=== PATIENT | female | born 1935 | race Caucasian/White ===

== ENCOUNTER 2016-08-14 08:03 | Outpatient (CLI) ==
--- NOTE | 2016-08-14 09:16 | CT ---
EXAM: CT Abdomen with contrast. CT Pelvis with contrast. HISTORY: Lower abdominal pain, bloating. COMPARISON: None available. TECHNIQUE: Multiple axial images of the abdomen and pelvis were obtained following intravenous admi nistration of 100 mL of Visipaque 320, low osmolar. Images were reformatted in the coronal plane. FINDINGS: Lipomatous hypertrophy of the interatrial septum is present although the heart is incompl etely imaged. Calcified granulomatous changes seen in the lung bases. Degenerative changes seen throughout the spine. Old moderate anterior wedging deformity of T12 note d. 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 Gallbladder is absent. A 0.8 cm low density hepatic lesion on axial image 22 is too small to charac terize but statistically most likely a cyst or hemangioma. The pancreas, spleen, adrenal glands, an d kidneys are without acute abnormality. Large para-esophageal hiatal hernia containing most of the stomach. There is no evidence for bowel obstruction or acute inflammation. Mild colonic diverticulosis noted. The appendix is normal. Keila iam is absent. Urinary bladder is unremarkable. No free fluid, free air or lymphadenopathy identif ied. Atherosclerotic calcifications present with areas of fusiform dilatation of the infrarenal abd ominal aorta measuring up to 2.4 cm diameter. IMPRESSION: 1. No acute inflammatory process in the abdomen or pelvis. 2. Large para-esophageal hiatal hernia. 3. Colonic diverticulosis. 4. Atherosclerosis. 5. Lipomatous hypertrophy of the interatrial septum.
== END 2016-08-14 08:04 | disposition home or self-care (01) ==
LOC: RAD 08:03
PROVIDERS: ATTEND Family Medicine
DX: R10.9 Unspecified abdominal pain (principal)

== ENCOUNTER 2016-10-14 17:29 | Outpatient (CLI) | payer OTHER | END 2016-10-14 17:30 | disposition short-term general hospital (02) | LOC: AMBL 17:29 | PROVIDERS: ATTEND Emergency Medicine | DX: E11.649 Type 2 diabetes mellitus with hypoglycemia without coma (principal); I95.9 Hypotension, unspecified ==

== ENCOUNTER 2017-04-22 16:25 | Outpatient (CLI) | END 2017-04-22 16:26 | disposition home or self-care (01) | LOC: NONPT 16:25 | PROVIDERS: ATTEND Family Medicine | DX: R68.89 Other general symptoms and signs (principal) | CPT/HCPCS: 87502 ==

== ENCOUNTER 2017-04-23 09:46 | Outpatient (CLI) | END 2017-04-23 09:47 | disposition home or self-care (01) | LOC: NONPT 09:46 | PROVIDERS: ATTEND Family Medicine | DX: R30.0 Dysuria (principal); R35.0 Frequency of micturition | CPT/HCPCS: 81001; 87086 ==

== ENCOUNTER 2017-04-28 17:22 | Inpatient (IN) ==
--- NOTE | 2017-04-28 18:25 | ED.PDOC ---
General Stated Complaint: ABNORMAL LABS Time Seen by Physician: 17:30 (OUT PT SERUM K WAS HIGH) Mode of Arrival: Wheelchair Information Source: Patient Exam Limitations: No limitations Nursing and Triage Documentation Reviewed and Agree: Yes Reviewed sepsis parameters & appropriate labs ordered?: Yes System Inflammatory Response Syndrome: Not Applicable System Inflammatory Response Syndrome: Not Applicable <CHRIS HOLLIDAY - Last Filed: 04/28/17 18:23> <ROSEMARY RUIZ - Last Filed: 04/28/17 19:16> ED Provider: Dr. ROSEMARY MATUTE-ER Chief Complaint: Abnormal Labs Primary Care Provider: ROSEMARY MATUTE Sepsis Protocol: For patient's 13 years and over: Temp is 96.8 and below OR 101 and greater Pulse >90 BPM Resp >20/minute Acutely Altered Mental Status Are patient's symptoms suggestive of a new infection, such as: -Pneumonia -Skin, Soft Tissue -Endocarditis -UTI -Bone, Joint Infection -Implantable Device -Acute Abdominal Infection -Wound Infection -Meningitis -Blood Stream Catheter Infection -Unknown Miscellaneous Complaint Exam - Complex/Multi-System Complaint/Exam Onset/Duration: TODAY Symptoms Are: Still present Episodes Lasting: Hours Initial Severity: Moderate Current Severity: Mild Associated Signs and Symptoms: Denies: Decreased responsiveness, Confusion, Agitation, Dizziness, Weakness, Syncope, Headache, Short of air, Cough, Wheezing , Hemoptysis, Chest pain, Palpitations, Edema, Nausea, Vomiting, Diarrhea, Abdominal pain, Back pain, Dysuria, Hematemesis, Melena, Decreased oral intake, Fever, Diaphoresis, Immunocompromised, Anticoagulation Therapy, Recent medication changes, Indwelling medical director, Prior MRSA, Prior VRE, Recent trauma, Remote trauma Recent Echo/LV Function: No Respiratory Distress: None JVD Present: No Tachypnea Present: No Stridor Present: No Abdominal Findings: Present: Normal findings Meningeal Signs Positive: No Focal Weakness: Present: None Focal Sensory Loss: Present: None Gait: Normal Gag Reflex Present: Yes Babinski Sign: Negative Right, Negative Left Joint Swelling Present: No In-Dwelling Device Present: No Differential Diagnosis: Metabolic Abnormality Quality Indicators for Cardiac Chest Pain: EKG in 10min. Quality Indicators for AMI: EKG in 10min. Quality Indicator For Non-Traumatic Chest Pain/Syncope: EKG Performed <CHRIS HOLLIDAY - Last Filed: 04/28/17 18:23> Review of Systems - Review Of Systems Constitutional: Reports: No symptoms Eyes: Reports: No symptoms Ears, Nose, Mouth, Throat: Reports: No symptoms Respiratory: Reports: No symptoms Cardiac: Reports: No symptoms GI: Reports: No symptoms : Reports: No symptoms Musculoskeletal: Reports: No symptoms Skin: Reports: No symptoms Neurological: Reports: No symptoms Endocrine: Reports: No symptoms Hematologic/Lymphatic: Reports: No symptoms All Other Systems: Reviewed and Negative <CHRIS HOLLIDAY - Last Filed: 04/28/17 18:23> Past Medical History - Past Medical History Previously Healthy: Yes Endocrine: Reports: DM 2 Cardiovascular: Reports: Hypertension Respiratory: Reports: COPD Hematological: Reports: None Gastrointestinal: Reports: GERD Genitourinary: Reports: None Neuro/Psych: Reports: Schizophrenia Musculoskeletal: Reports: None Cancer: Reports: None Last Menstrual Period: n/a - Surgical History General Surgical History: Reports: None - Family History Family History: Reports: None - Social History Smoking Status: Former smoker Hx Substance Use: No Alcohol Screening: None <CHRIS HOLLIDAY - Last Filed: 04/28/17 18:23> Physical Exam - Physical Exam Appearance: Well-appearing, No pain distress, Well-nourished Eyes: WILIAM, EOMI, Conjunctiva clear ENT: Ears normal, Nose normal, Oropharynx normal Respiratory: Airway patent, Breath sounds clear, Breath sounds equal, Respirations nonlabored Cardiovascular: RRR, Pulses normal, No rub, No murmur GI/: Soft, Nontender, No masses, Bowel sounds normal, No Organomegaly Musculoskeletal: Normal strength, ROM intact, No edema, No calf tenderness Skin: Warm, Dry, Normal color Neurological: Sensation intact, Motor intact, Reflexes intact, Cranial nerves intact, Alert, Oriented Psychiatric: Affect appropriate, Mood appropriate <CHRIS HOLLIDAY - Last Filed: 04/28/17 18:23> Critical Care Note - Critical Care Note Total Time (mins): 0 <CHRIS HOLLIDAY - Last Filed: 04/28/17 18:23> Course - Course Hematology/Chemistry: 04/28/17 18:34 04/28/17 18:34 <ROSEMARY RUIZ - Last Filed: 04/28/17 19:16> - Course Orders, Labs, Meds: Lab Review 04/28/17 04/28/17 04/28/17 18:34 18:34 18:34 WBC 5.18 RBC 4.50 Hgb 12.5 Hct 36.5 L MCV 81.1 MCH 27.8 MCHC 34.2 RDW Coeff of Bianka 13.7 Plt Count 241 Immature Gran % (Auto) 0.2 Neut % (Auto) 55.8 Lymph % (Auto) 31.3 [place] % (Auto) 10.6 H Eos % (Auto) 2.1 Baso % (Auto) 0.0 Immature Gran # (Auto) 0.0 Neut # (Auto) 2.9 Lymph # (Auto) 1.6 [place] # (Auto) 0.6 Eos # (Auto) 0.1 Baso # (Auto) 0.0 Sodium 131 L Potassium 6.4 H* Chloride 102 Carbon Dioxide 21 L Anion Gap 14.4 BUN 47 H Creatinine 1.60 H Estimated GFR (MDRD) 31.00 BUN/Creatinine Ratio 29.37 Glucose 104 Calcium 9.8 Total Bilirubin 0.3 AST 13 L ALT 19 Alkaline Phosphatase 83 Total Creatine Kinase Troponin I 0.0130 Total Protein 7.8 Albumin 3.8 Globulin 4.0 Albumin/Globulin Ratio 0.95 04/28/17 18:34 WBC RBC Hgb Hct MCV MCH MCHC RDW Coeff of Bianka Plt Count Immature Gran % (Auto) Neut % (Auto) Lymph % (Auto) [place] % (Auto) Eos % (Auto) Baso % (Auto) Immature Gran # (Auto) Neut # (Auto) Lymph # (Auto) [place] # (Auto) Eos # (Auto) Baso # (Auto) Sodium Potassium Chloride Carbon Dioxide Anion Gap BUN Creatinine Estimated GFR (MDRD) BUN/Creatinine Ratio Glucose Calcium Total Bilirubin AST ALT Alkaline Phosphatase Total Creatine Kinase 48 Troponin I Total Protein Albumin Globulin Albumin/Globulin Ratio Orders Category Date Time Status EKG-(ED ONLY) Stat CARDIO 04/28/17 18:05 Completed BLOOD CULTURE (ED ONLY) Stat LAB 04/28/17 18:34 Received CBC W/ AUTO DIFF Stat LAB 04/28/17 18:34 Completed COMPREHENSIVE METABOLIC PANEL Stat LAB 04/28/17 18:34 Completed CREATINE KINASE Stat LAB 04/28/17 18:34 Completed PROCALCITONIN Stat LAB 04/28/17 18:34 Received TROPONIN I Stat LAB 04/28/17 18:34 Completed CHEST, 1V AP ONLY Stat RADS 04/28/17 18:[address] ABDOMEN/PELVIS WO CONTRAST Stat RADS 04/28/17 18:05 Ordered Vital Signs: Temp Pulse Resp BP Pulse Ox 04/28/17 17:22 97.6 F 98 H 20 113/71 95 Departure - Departure Time of Disposition: 19:00 Pt referred to PMD for follow-up: Yes (AT END OF SHIFT TODAY) IPMP verified?: No Disposition Discussed With: Patient <CHRIS HOLLIDAY - Last Filed: 04/28/17 18:23> - Departure Pt referred to PMD for follow-up: Yes IPMP verified?: No Disposition Discussed With: Patient <ROSEMARY RUIZ - Last Filed: 04/28/17 19:16> - Departure Disposition: ADMITTED INPATIENT Discharge Problem: Laboratory test result abnormal, Hyperkalemia Condition: Good Additional Instructions: Please call your Family Physician as soon as possible to schedule a follow-up appointment. Home Medications: Ambulatory Orders Acetaminophen [Tylenol] 325 mg PO BEDTIME 04/28/17 Acetaminophen [Tylenol] 325 mg PO Q4H PRN 04/28/17 Albuterol Sulfate [Proair Hfa] 1 - 2 puff IH Q6H PRN 04/28/17 Amiloride/Hydrochlorothiazide [Amiloride HCl-Hctz 5-50 mg Tab] 1 each PO DAILY 04/28/17 Cholecalciferol (Vitamin D3) [Vitamin D] 1,000 unit PO BID 04/28/17 Cyanocobalamin (Vitamin B-12) [Cyanocobalamin Injection] 1,000 mcg IJ MONTHLY Duloxetine HCl [Cymbalta] 20 mg PO BEDTIME 04/28/17 Hydrocortisone [Hydrocortisone 1% Cream] 1 applic TP BID PRN 04/28/17 Ipratropium/Albuterol Neb [Duoneb] 1 vial NEB RTQ6H 04/28/17 Linagliptin [Tradjenta] 5 mg PO DAILY 04/28/17 Lisinopril 10 mg PO DAILY 04/28/17 Loperamide HCl [Loperamide] 2 mg PO Q6H PRN 04/28/17 Magnesium Hydroxide [Milk of Magnesia] 30 ml PO DAILY PRN 04/28/17 Metoprolol Tartrate [Lopressor] 50 mg PO BID 04/28/17 Olanzapine [Zyprexa] 2.5 mg PO EVERY OTHER DAY 04/28/17 Polyethylene Glycol 3350 [Miralax] 17 gm PO BID 04/28/17 Propylene Glycol/Peg 400 [Systane 0.3-0.4% Eye Drops] 1 drop OP BID 04/28/17 Ranitidine HCl 150 mg PO BID 04/28/17 Spironolactone 25 mg PO BID 04/28/17 Trazodone HCl 50 mg PO BEDTIME 04/28/17
[2017-04-28] MEDS ORDERED: KAYEXALATE SUSP PO STA (19:19)
[2017-04-28] MEDS ORDERED: NORVASC PO SCH (19:30)
--- NOTE | 2017-04-28 19:44 | DI ---
EXAM: One-view chest HISTORY: Cough TECHNIQUE: Single frontal view the chest was obtained. Comparison 01/05/2014. FINDINGS: The heart is stable size. Lungs are clear. The pulmonary vasculature appears normal. The re is atherosclerotic calcification of the thoracic aorta. The osseous structures are normal. There is stable appearance of a large hiatal hernia. IMPRESSION: No active cardiopulmonary disease.
--- NOTE | 2017-04-28 19:54 | CT ---
EXAM: CT of the abdomen and pelvis without contrast: History: Patient with history of abdominal pain. COMPARISON: 08/14/2016 Technique: Non contrast CT of the abdomen and pelvis was performed with axial , sagital and coronal r econstuctions were obtained and reviewed. FINDINGS: The appendix is visualized without definitive evidence of inflammation or dilation identified. No stones are identified in the bilateral kidneys, ureters or bladder. There is no hydronephrosis or hydroureter idenified. Within the limits of this noncontrast study, no lesions are identified in the kidneys, adrenals, live r, spleen or pancreas. Cholecystectomy clips are present. There is a large hiatal hernia present. There is scattered colonic diverticula present. Atherosclerotic arterial vascular calcifications are seen at the abdomen pelvis. No dilated bowel loops are identified. No focal fluid collections or pathologically enlarged lymph nodes are identified in the abdomen or pelvis. Bone windows demonstrate no destructive osseous lesions are identified in the abdomen or pelvis. Dege nerative changes are seen at the bilateral hips. Limited evaluation of the lung bases demonstrate bul lous disease again seen at the left lung base. Left lung base calcified granulomas are present. Ther e is a right middle lobe indeterminate stable 3 mm nodule seen at axial image number 16. There is an additional stable left upper lobe lingula 4 mm nodule present at axial image number 13 unchanged fro m axial image #1. There is a stable compression fracture deformity seen at the T12 level. IMPRESSION: 1. Colonic diverticulosis. 2. The appendix is visualized without definitive evidence of inflammation or dilation. 3. Cholecystectomy. 4. Large hiatal hernia. 5. Atherosclerotic arterial vascular calcification/disease. 6. Technical limitations in the absence of contrast. 7. 3 mm stable right middle lobe lung nodule and stable 4 mm left upper lobe lingula nodule. Recomm end CT followup in 6 months to assess stability.
[2017-04-28] MEDS ORDERED: NON-FORMULARY MEDICATION (Ranitidine Hcl [Ranitidine Hcl] 150 MG) PO SCH (21:00)
[2017-04-28] MEDS ORDERED: PROPYLENE GLYCOL OP SCH (21:00)
[2017-04-28] MEDS ORDERED: LOPRESSOR PO SCH (21:00)
[2017-04-28] MEDS ORDERED: DULOXETINE HCL 20 MG PO SCH (21:00)
[2017-04-28] MEDS ORDERED: PEG OP SCH (21:00)
--- NOTE | 2017-04-28 21:39 | ED.PDOC ---
Procedures - IV/Art Line Insertion Location: rt wrist Type of Line: Peripheral IV Invasive Line/IV Catheter Gauge: 24 Number of Attempts: 1 Blood Return Positive: Yes Invasive Line/IV Flushes Without Difficulty: Yes Conscious Sedation - Pre-op Assessment Weight: 190 lb - Medical History Past Medical History: Hypertension, Diabetes, COPD, GERD Other History: diaphragmatic hernia/schizophrenia/weakness - Physical Exam Heart Rate/Rhythm: Regular Rate
[2017-04-28] MEDS: SODIUM CHLORIDE 1,000 ML IV SCH (22:12)
[2017-04-28] MEDS ORDERED: KAYEXALATE SUSP ONE (22:36)
[2017-04-28] MEDS ORDERED: NORVASC ONE (22:36)
[2017-04-28] MEDS ORDERED: ZANTAC ONE (22:36)
[2017-04-28] MEDS: DESYREL PO SCH (22:38)
[2017-04-28 23:33] VITALS: BMI 32.5
[2017-04-29] MEDS: DUONEB NEB SCH ×5 (00:01→20:58)
[2017-04-29] MEDS ORDERED: KAYEXALATE SUSP PO STA (06:52)
[2017-04-29] MEDS: LOPRESSOR PO SCH ×2 (09:33→17:09)
[2017-04-29] MEDS: ZANTAC PO SCH ×2 (09:33→17:10)
[2017-04-29] MEDS: PROPYLENE GLYCOL OP SCH ×2 (09:34→21:16)
[2017-04-29] MEDS: TRADJENTA PO SCH (09:34)
[2017-04-29] MEDS: PEG OP SCH ×2 (09:34→21:16)
[2017-04-29] MEDS: SODIUM CHLORIDE 1,000 ML IV SCH (11:47)
[2017-04-29] MEDS ORDERED: ZYPREXA PO SCH (21:00)
[2017-04-29] MEDS ORDERED: DULOXETINE HCL 20 MG PO SCH (21:00)
[2017-04-29] MEDS: DESYREL PO SCH (21:15)
[2017-04-30] MEDS: SODIUM CHLORIDE 1,000 ML IV SCH ×2 (01:21→15:50)
[2017-04-30] MEDS: DUONEB NEB SCH ×3 (05:08→14:10)
[2017-04-30] MEDS: ZANTAC PO SCH ×2 (05:43→17:11)
[2017-04-30] MEDS: PEG OP SCH (09:04)
[2017-04-30] MEDS: LOPRESSOR PO SCH ×2 (09:04→17:11)
[2017-04-30] MEDS: PROPYLENE GLYCOL OP SCH (09:04)
[2017-04-30] MEDS: TRADJENTA PO SCH (09:04)
[2017-04-30 18:28] VITALS: BP 123/60; TEMP 98.6
--- NOTE | 2017-06-18 09:52 | SSS ---
PRINCIPAL DIAGNOSIS: 1. Hyperkalemia DISCUSSION: Lucia Whaley is an 81 year old lady with a history of schizophrenia as well as type 2 diabetes who [facility] and routine labs revealed an elevated potassium. Asked her to come to the emergency department to have it repeated. She was found to have a potassium of 6.4. There was mild EKG changes and subsequently the patient was admitted to the hospital for treatment for her hyperkalemia. PAST MEDICAL HISTORY: MEDICATIONS: Tylenol ProAir inhaler Amiloride/Hydrochlorothiazide Cymbalta DUO NEBS Tradjenta Lisinopril Loperamide Metoprolol Zyprexa Miralax Zantac Spironolactone Trazodone ALLERGIES: Penicillin Sulfa PAST MEDICAL HISTORY: History of COPD Schizophrenia Hypertension Diabetes Type 2 GERD SOCIAL HISTORY: She is previous smoker and no alcohol or illicit drug use. FAMILY HISTORY: Reviewed and thought not to be pertinent to discussion. REVIEW OF SYSTEMS: No headaches, visual changes, tinnitus, hemoptysis, blood in the stool, urinary symptoms or seizures. PHYSICAL EXAMINATION: VITAL SIGNS: Temperature 97.6, pulse 98, respirations 20 and blood pressure 130/ 71. HEENT: Pupils are round. NECK: Supple. CHEST: Clear. CARDIOVASCULAR: Regular rate and rhythm. ABDOMEN: Soft, nontender. EXTREMITIES: Distal extremities without cyanosis or edema. CLINICAL COURSE: The patient was admitted to my services and given treatment for the hyperkalemia including IV fluids and Kayexalate. She did very well with this. We also discontinued her Spironolactone. At the time of discharge her Potassium was down to 4.4 and her blood glucose was up to 263 but this will be followed as an outpatient. At this point we felt the patient was stable for discharge. She will be discharge with instructions to discontinue her Aldactone and Lisinopril. We are going to get a repeat BNP in a few days. LEONIDES
== END 2017-04-30 19:17 | DRG 641 ==
LOC: ED 17:22 → MEDSURG A 19:28
PROVIDERS: ADMIT Family Medicine; ATTEND Family Medicine
DX: E87.5 Hyperkalemia (principal); F20.9 Schizophrenia, unspecified; E11.9 Type 2 diabetes mellitus without complications; I10 Essential (primary) hypertension; Z87.891 Personal history of nicotine dependence; Z79.84 Long term (current) use of oral hypoglycemic drugs; Z79.899 Other long term (current) drug therapy
CPT/HCPCS: 36415; 80048; 80053; 82550; 84145; 84484; 85025; 87040; 87081; 93005; 93010; 94640; 97802; 99284

== ENCOUNTER 2018-05-17 08:59 | Outpatient (CLI) | payer OTHER ==
[2017-08-10 20:50] VITALS: BMI 28.5
--- NOTE | 2018-05-17 10:21 | CT ---
EXAM: CT abdomen pelvis without contrast HISTORY: Abdominal pain, gas, bloating COMPARISON: 08/11/2017 and prior TECHNIQUE: CT abdomen pelvis performed without intravenous contrast. Coronal and sagittal reformatt ed images obtained. FINDINGS: Mild emphysema lung bases. Cystic change left lower lobe appears unchanged. Bibasilar sc arring. Granulomatous calcification. No free air. No acute abnormalities of the bones. Severe ost eoarthritis of the hips. Degenerative change in the spine. Chronic compression deformity T12. Eval uation organ parenchyma limited without contrast. Heart normal in size. Lipomatous hypertrophy intr a-atrial septum. Coronary calcifications. Stable sub centimeter hypodensity in the liver, too small to characterize. Patient status post cholecystectomy. Pancreas unremarkable. Granulomatous calcif ication in the spleen. Spleen otherwise unremarkable. Adrenals unremarkable. No hydronephrosis or nephrolithiasis. No calculi visualized in normal course of the ureters. Bladder unremarkable. Mariama ent status post hysterectomy. Aorta normal in caliber. Moderate to severe atherosclerosis. No lymp hadenopathy or ascites. Large para-esophageal hernia containing majority of stomach. No evidence fo r bowel obstruction or acute inflammation. No dilated loops small bowel. Colonic diverticulosis. N o inflammatory stranding identified in the abdomen or pelvis. IMPRESSION: 1. No acute abnormality identified in the abdomen or pelvis. 2. Large para-esophageal hiatal hernia. 3. Colonic diverticulosis. 4. Atherosclerosis. 5. Lipomatous hypertrophy intra-atrial septum.
== END 2018-05-17 09:00 | disposition home or self-care (01) ==
LOC: RAD 08:59
PROVIDERS: ATTEND Internal Medicine
DX: R10.9 Unspecified abdominal pain (principal)

== ENCOUNTER 2018-09-09 21:38 | Observation (INO) ==
[2018-09-09] MEDS ORDERED: SODIUM CHLORIDE 1,000 ML IV STA (21:54)
[2018-09-09] MEDS ORDERED: LOPRESSOR IVP STA (22:03)
--- NOTE | 2018-09-09 23:25 | CT ---
Exam: CT of the abdomen and pelvis without contrast History: Weakness and diarrhea Technique: [address] of the abdomen and pelvis without intravascular contrast FINDINGS: The lung bases are clear. Large hiatus hernia contains the majority of the stomach. No c omplicating features are seen. The liver appears normal. Prior cholecystectomy. Normal pancreas, s pleen and adrenal glands. Normal right kidney and collecting system. Left extrarenal pelvis is mild ly distended and there is mild hydronephrosis. The appendix is normal. Bowel loops demonstrate norm al caliber. No inflamatory change seen in the mesentery or retroperitoneum. Atherosclerotic calcifi cation of the aorta without aneurysm. Prior hysterectomy. Normal urinary bladder. A few sigmoid colonic diverticula. No pelvic fat infla mmation. No acute findings of the skeleton. Bilateral advanced hip osteoarthritic change symmetrica lly. Chronic T12 wedge compression fracture. Impression: 1. No inflammatory process, bowel or urinary obstruction is seen. 2. Mild left hydronephrosis and distension of extrarenal pelvis. The ureter is totally decompressed . New finding compared with 05/17/2018. The significance is uncertain. There is no urolithiasis.
--- NOTE | 2018-09-09 23:50 | DI ---
Exam: Chest one-view History: Hypoxia FINDINGS: Normal cardiomediastinal contours with moderate size hiatus hernia shadow. Atelectasis al yulia the hernia border on the left. Lungs are clear otherwise. Atherosclerotic calcification of the aorta. No acute chest wall abnormality. Impression: Hiatus hernia with adjacent atelectasis. No acute findings of the chest otherwise.
--- NOTE | 2018-09-10 00:11 | ED.PDOC ---
General ED Provider: Dr. ROSEMARY MATUTE-ER Chief Complaint: Diarrhea Stated Complaint: i have diarrhea Time Seen by Physician: 21:40 Mode of Arrival: Wheelchair Information Source: Patient, Family Exam Limitations: No limitations Primary Care Provider: ROSEMARY MATUTE Nursing and Triage Documentation Reviewed and Agree: Yes Does patient meet sepsis criteria?: No System Inflammatory Response Syndrome: Not Applicable Sepsis Protocol: For patient's 13 years and over: Temp is 96.8 and below OR 101 and greater Pulse >90 BPM Resp >20/minute Acutely Altered Mental Status Are patient's symptoms suggestive of a new infection, such as: -Pneumonia -Skin, Soft Tissue -Endocarditis -UTI -Bone, Joint Infection -Implantable Device -Acute Abdominal Infection -Wound Infection -Meningitis -Blood Stream Catheter Infection -Unknown GI Complaint Exam - Vomiting/Diarrhea Complaint/Exam Onset/Duration: 24 hrs Symptoms Are: Still present Initial Severity: Mild Current Severity: Mild Character of Diarrhea: Reports: Watery Aggravating: Reports: None Alleviating: Reports: None Abdominal Findings: Present: None Kussmaul Respirations Present: No Differential Diagnoses: Other Review of Systems - Review Of Systems Constitutional: Reports: No symptoms Eyes: Reports: No symptoms Ears, Nose, Mouth, Throat: Reports: No symptoms Respiratory: Reports: No symptoms Cardiac: Reports: No symptoms GI: Reports: Diarrhea : Reports: No symptoms Musculoskeletal: Reports: No symptoms Skin: Reports: No symptoms Neurological: Reports: No symptoms Endocrine: Reports: No symptoms Hematologic/Lymphatic: Reports: No symptoms All Other Systems: Reviewed and Negative Past Medical History - Past Medical History Previously Healthy: Yes Endocrine: Reports: DM 2 Cardiovascular: Reports: Hypertension Respiratory: Reports: COPD Hematological: Reports: None Gastrointestinal: Reports: GERD Genitourinary: Reports: None Neuro/Psych: Reports: Schizophrenia Musculoskeletal: Reports: None Cancer: Reports: None Last Menstrual Period: PT HAS HAD A HYSTERECTOMY Other Pertinent Past Medical History: Insomina - Surgical History General Surgical History: Reports: None - Family History Family History: Reports: None - Social History Smoking Status: Former smoker Hx Substance Use: No Alcohol Screening: None - Immunizations Tetanus Shot up to Date: (UNKNOWN) Physical Exam - Physical Exam Appearance: Well-appearing, No pain distress, Well-nourished Eyes: WILIAM ENT: Ears normal, Nose normal, Oropharynx normal Neck: Supple Respiratory: Airway patent, Breath sounds clear, Breath sounds equal, Respirations nonlabored Cardiovascular: RRR, Pulses normal, No rub, No murmur GI/: Soft, Nontender, No masses, Bowel sounds normal, No Organomegaly Musculoskeletal: Normal strength, ROM intact, No edema, No calf tenderness Skin: Warm, Dry, Normal color Neurological: Sensation intact, Motor intact, Reflexes intact, Cranial nerves intact, Alert, Oriented Psychiatric: Affect appropriate, Mood appropriate Interpretation - Radiology Interpretation Radiology Interpretation By: ED Physician Radiology Results: Negative Exam Interpreted: CT Scan - EKG Interpretation Time of EKG #1: 00:10 Rate: Normal Rhythm: Sinus Ectopy: None [place]: [place] ST Segment: Normal Critical Care Note - Critical Care Note Total Time (mins): 0 Course - Course Hematology/Chemistry: 09/09/18 21:57 09/09/18 21:57 Orders, Labs, Meds: Lab Review 09/09/18 09/09/18 09/09/18 21:53 21:57 21:57 WBC 5.69 RBC 4.53 Hgb 12.5 Hct 37.8 MCV 83.4 MCH 27.6 MCHC 33.1 RDW Coeff of Bianka 14.2 Plt Count 190 Immature Gran % (Auto) 0.2 Neut % (Auto) 60.1 Lymph % (Auto) 24.6 Barry % (Auto) 10.5 H Eos % (Auto) 4.6 Baso % (Auto) 0.0 Immature Gran # (Auto) 0.0 Neut # (Auto) 3.4 Lymph # (Auto) 1.4 Barry # (Auto) 0.6 Eos # (Auto) 0.3 Baso # (Auto) 0.0 ESR 10 Puncture Site Lb O2 Saturation 92.0 L ABG pH 7.375 ABG pCO2 45.9 H ABG pO2 65.0 L ABG HCO3 26.8 H ABG Total CO2 28 ABG Base Excess 2 Dony Test + FiO2 % 21.0 Sodium 137.8 Potassium 3.77 Chloride 95.5 L Carbon Dioxide 30.7 H Anion Gap 15.37 BUN 21.8 H Creatinine 1.13 Estimated GFR (MDRD) 46.00 BUN/Creatinine Ratio 19.29 Glucose 136.8 H Calcium 9.25 Total Bilirubin 0.37 AST 26.2 ALT 20.5 Alkaline Phosphatase 75.8 Total Protein 7.63 Albumin 4.43 Globulin 3.20 Albumin/Globulin Ratio 1.38 Urine Color Urine Clarity Urine pH Ur Specific [place] Urine Protein Urine Glucose (UA) Urine Ketones Urine Blood Urine Nitrite Urine Bilirubin Urine Urobilinogen Ur Leukocyte Esterase Urine Microscopic WBC Ur Squamous Epith Cells Urine Bacteria Hyaline Casts Urine Mucus 09/09/18 23:24 WBC RBC Hgb Hct MCV MCH MCHC RDW Coeff of Bianka Plt Count Immature Gran % (Auto) Neut % (Auto) Lymph % (Auto) Barry % (Auto) Eos % (Auto) Baso % (Auto) Immature Gran # (Auto) Neut # (Auto) Lymph # (Auto) Barry # (Auto) Eos # (Auto) Baso # (Auto) ESR Puncture Site O2 Saturation ABG pH ABG pCO2 ABG pO2 ABG HCO3 ABG Total CO2 ABG Base Excess Dony Test FiO2 % Sodium Potassium Chloride Carbon Dioxide Anion Gap BUN Creatinine Estimated GFR (MDRD) BUN/Creatinine Ratio Glucose Calcium Total Bilirubin AST ALT Alkaline Phosphatase Total Protein Albumin Globulin Albumin/Globulin Ratio Urine Color Yellow Urine Clarity Slightly Urine pH 5.0 Ur Specific [place] 1.025 Urine Protein Negative Urine Glucose (UA) Negative Urine Ketones Negative Urine Blood Negative Urine Nitrite Negative Urine Bilirubin Negative Urine Urobilinogen 0.2 Ur Leukocyte Esterase Trace Urine Microscopic WBC 2-5 Ur Squamous Epith Cells 10-20 Urine Bacteria Trace Hyaline Casts 2-5 Urine Mucus Trace Orders Category Date Time Status ABG DRAW REQUEST Stat CARDIO 09/09/18 21:53 Ordered EKG-(ED ONLY) Stat CARDIO 09/09/18 21:53 Ordered C-DIFF MONITORING (NURSING) BID CARE 09/09/18 21:50 Active IV [ED IV/MEDIPORT/POWERPORT] .ONCE EMERGENCY 09/09/18 21:53 Active ABG Stat LAB 09/09/18 21:53 Completed CBC W/ AUTO DIFF Stat LAB 09/09/18 21:57 Completed COMPREHENSIVE METABOLIC PANEL Stat LAB 09/09/18 21:57 Completed ESR Stat LAB 09/09/18 21:57 Completed URINALYSIS C & S IF INDICATED Stat LAB 09/09/18 23:24 Completed c-diff [C. DIFFICILE] Routine LAB 09/09/18 21:49 Uncollected 0.9 % Sodium Chloride [Saline Flush] MEDS 09/09/18 21:53 Active 1 syr IVF PRN PRN Sodium Chloride 0.9% [Sodium Chloride] 1,000 ml MEDS 09/09/18 21:[address] ABDOMEN/PELVIS WO CONTRAST Stat RADS 09/09/18 21:48 Completed CXR [CHEST, 1V AP ONLY] Stat RADS 09/09/18 22:00 Completed Medications Generic Name Dose Route Start Last Admin Trade Name Stacy PRN Reason Stop Dose Admin Sodium Chloride 1 syr 09/09/18 21:53 09/09/18 23:01 Saline Flush IVF 1 syr PRN PRN Administration To flush IV Discontinued Medications Generic Name Dose Route Start Last Admin Trade Name Frecoral PRN Reason Stop Dose Admin Sodium Chloride 1,000 mls @ 1,000 mls/hr 09/09/18 21:54 09/09/18 23:01 Sodium Chloride IV 09/09/18 22:53 1,000 mls/hr BOLUS STA Administration Vital Signs: Temp Pulse Resp BP Pulse Ox 09/09/18 23:02 74 19 103/70 97 09/09/18 21:39 97.6 F 81 32 H 109/62 87 L Departure - Departure Time of Disposition: 00:10 Disposition: PLACED OBSERVATION Discharge Problem: Diarrhea, Hypoxia Instructions: Acute Diarrhea (ED) Condition: Good Pt referred to PMD for follow-up: Yes IPMP verified?: No Allergies/Adverse Reactions: Allergies Penicillins Adverse Reaction (Verified 09/09/18 21:47) Sulfa (Sulfonamide Antibiotics) Adverse Reaction (Verified 09/09/18 21:47) Home Medications: Ambulatory Orders Acetaminophen [Tylenol] 325 mg PO Q6H PRN 04/28/17 Albuterol Sulfate [Proair Hfa] 2 puff IH Q6H PRN 04/28/17 Cyanocobalamin (Vitamin B-12) [Cyanocobalamin Injection] 1,000 mcg IJ MONTHLY Linagliptin [Tradjenta] 5 mg PO DAILY 04/28/17 Magnesium Hydroxide [Milk of Magnesia] 30 ml PO DAILY PRN 04/28/17 Metoprolol Tartrate [Lopressor] 50 mg PO BID 04/28/17 Olanzapine [Zyprexa] 2.5 mg PO BEDTIME 04/28/17 Propylene Glycol/Peg 400 [Systane 0.3-0.4% Eye Drops] 1 drop OP BID 04/28/17 Ranitidine HCl 150 mg PO DAILY 04/28/17 Trazodone HCl 25 mg PO BEDTIME 04/28/17 Cholecalciferol (Vitamin D3) [Vitamin D] 1,000 unit PO BID tablet 08/03/17 Duloxetine HCl [Cymbalta] 20 mg PO BEDTIME cap 08/03/17 Nitrofurantoin Monohyd/M-Cryst [Macrobid] 100 mg PO DAILY 7 Days capsule Polyethylene Glycol 3350 [Miralax] 17 gm PO BID powd.pack 08/03/17 Amiloride/Hydrochlorothiazide [Amiloride HCl-Hctz 5-50 mg Tab] 1 tab PO DAILY Azelastine HCl 6 ml OP BID 09/09/18 Bisacodyl [Dulcolax] 10 mg RC Q12H PRN 09/09/18 Glyburide 5 mg PO BID 09/09/18 Metformin HCl 500 mg PO BID 09/09/18 Potassium Chloride [K-Tab ER] 10 meq PO DAILY 09/09/18 Sennosides/Docusate Sodium [Senokot-S Tablet] 1 each PO BID 09/09/18 Disposition Discussed With: Patient, Family
[2018-09-10] MEDS ORDERED: PROAIR HFA IH PRN (00:14)
[2018-09-10] MEDS ORDERED: TYLENOL PO PRN (00:14)
[2018-09-10] MEDS ORDERED: HUMULIN R SUBCUT PRN (00:18)
[2018-09-10] MEDS ORDERED: SODIUM CHLORIDE 1,000 ML IV SCH (00:30)
[2018-09-10 01:12] VITALS: BMI 30.3
[2018-09-10] MEDS ORDERED: NON-FORMULARY MEDICATION INH PRN (02:30)
[2018-09-10] MEDS ORDERED: NON-FORMULARY MEDICATION PO PRN (02:30)
[2018-09-10] MEDS ORDERED: AZELASTINE HCL OP SCH (09:00)
[2018-09-10] MEDS ORDERED: NON-FORMULARY MEDICATION INH SCH (09:00)
[2018-09-10] MEDS ORDERED: [UNRECOGNIZED DRUG - OTHER] PO SCH (09:00)
[2018-09-10] MEDS ORDERED: NON-FORMULARY MEDICATION PO SCH ×7 (09:00→21:00)
[2018-09-10] MEDS ORDERED: AMILORIDE PO SCH (09:00)
[2018-09-10] MEDS ORDERED: HYDROCHLOROTHIAZIDE PO SCH (09:00)
[2018-09-10] MEDS ORDERED: PROPYLENE GLYCOL OP SCH (09:00)
[2018-09-10] MEDS ORDERED: PEG OP SCH (09:00)
[2018-09-10] MEDS ORDERED: ALBUTEROL SULFATE IH PRN (09:02)
[2018-09-10] MEDS: NON-FORMULARY MEDICATION (Azelastine Hcl [Azelastine Hcl] 1 DROP) EACHEYE SCH ×2 (09:47→21:06)
[2018-09-10] MEDS: PEG OP SCH ×2 (09:48→21:08)
[2018-09-10] MEDS: NON-FORMULARY MEDICATION (Metoprolol Tartrate [Lopressor] 50 MG) PO SCH ×2 (09:48→21:07)
[2018-09-10] MEDS: PROPYLENE GLYCOL OP SCH ×2 (09:48→21:08)
[2018-09-10] MEDS: AMILORIDE HCL 5 MG PO SCH (09:49)
[2018-09-10] MEDS: NON-FORMULARY MEDICATION (Linagliptin [Tradjenta] 5 MG) PO SCH (09:49)
[2018-09-10] MEDS: NON-FORMULARY MEDICATION (Ranitidine Hcl [Ranitidine Hcl] 150 MG) PO SCH (09:49)
[2018-09-10] MEDS: LOVENOX SUBCUT SCH (09:49)
[2018-09-10] MEDS: CHOLECALCIFEROL 1000 UNIT PO SCH ×2 (09:49→21:07)
[2018-09-10] MEDS: HYDROCHLOROTHIAZIDE 50 MG PO SCH (09:50)
[2018-09-10] MEDS: NON-FORMULARY MEDICATION INH SCH (09:50)
[2018-09-10] MEDS: GLYBURIDE 5 MG PO SCH ×2 (09:51→17:18)
[2018-09-10] MEDS ORDERED: OLANZAPINE 2.5 MG PO SCH (21:00)
[2018-09-10] MEDS ORDERED: TRAZODONE HCL 25 MG PO SCH (21:00)
[2018-09-10] MEDS ORDERED: DULOXETINE HCL 20 MG PO SCH (21:00)
[2018-09-10] MEDS: ALBUTEROL 0.042% NEB NEB SCH (22:30)
[2018-09-11] MEDS: ALBUTEROL 0.042% NEB NEB SCH (04:40)
[2018-09-11 04:58] VITALS: BP 109/71; TEMP 98
[2018-09-11] MEDS: NON-FORMULARY MEDICATION (Ranitidine Hcl [Ranitidine Hcl] 150 MG) PO SCH (05:43)
[2018-09-11] MEDS: PROPYLENE GLYCOL OP SCH (08:08)
[2018-09-11] MEDS: PEG OP SCH (08:08)
[2018-09-11] MEDS: NON-FORMULARY MEDICATION (Linagliptin [Tradjenta] 5 MG) PO SCH (08:09)
[2018-09-11] MEDS: GLYBURIDE 5 MG PO SCH (08:09)
[2018-09-11] MEDS: HYDROCHLOROTHIAZIDE 50 MG PO SCH (08:10)
[2018-09-11] MEDS: NON-FORMULARY MEDICATION (Azelastine Hcl [Azelastine Hcl] 1 DROP) EACHEYE SCH (08:10)
[2018-09-11] MEDS: AMILORIDE HCL 5 MG PO SCH (08:11)
[2018-09-11] MEDS: NON-FORMULARY MEDICATION INH SCH (08:15)
[2018-09-11] MEDS: NON-FORMULARY MEDICATION (Metoprolol Tartrate [Lopressor] 50 MG) PO SCH (08:15)
[2018-09-11] MEDS: CHOLECALCIFEROL 1000 UNIT PO SCH (08:15)
[2018-09-11] MEDS: LOVENOX SUBCUT SCH ×2 (08:16→08:19)
[2018-09-29] MEDS ORDERED: VITAMIN B-12 IM SCH (09:00)
--- NOTE | 2018-12-28 14:23 | SSS ---
PRINCIPAL DIAGNOSIS: 1. DIARRHEA 2. DIABETES TYPE 2 3. HYPERTENSION 4. SCHIZOPHRENIA DISCUSSION: This is a 82-year-old lady, a half-way resident, that was brought to the Emergency Department with several episodes of diarrhea. Her family was very concerned that she was at the risk of becoming dehydrated. She was seen in the Emergency Department with the above history and was admitted with IV hydration and watching electrolytes. PAST MEDICAL HISTORY: MEDICATIONS: Tylenol ProAir Vitamin B12 Tradgenta Milk of Magnesia Lopressor Zyprexa Zantac Trazodone Cymbalta Macrobid Miralax Amiloride Hydrochlorothiazide Glyburide Metformin Potassium Docusate ALLERGIES: PENICILLIN, SULFA PAST MEDICAL HISTORY: History of Type 2 diabetes Chronic constipation Hypertension Schizophrenia PAST SURGICAL HISTORY: Hysterectomy SOCIAL HISTORY: Previous smoker. No alcohol or ilicit drug use. FAMILY HISTORY: Reviewed and thought not to be pertinent to discussion. REVIEW OF SYSTEMS: No headaches, visual changes, tinnitus, chest pain, shortness of breath, hemoptysis, blood in the stool, urinary symptoms or seizures. PHYSICAL EXAMINATION: VITAL SIGNS: Temperature 97.6, pulse 71, respirations 19 and blood pressure 103/70. HEENT: Pupils are round. NECK: Supple. CHEST: Clear. CARDIOVASCULAR: Regular rate and rhythm. ABDOMEN: Soft, nontender. EXTREMITIES: Distal extremities without cyanosis or edema. CLINICAL COURSE: The patient was admitted to my services, given IV hydration for the diarrhea. The diarrhea rapidly resolved. We discontinued the Metformin as we thought that this might be contributory to her diarrhea. She was also found to be hypoxic and she does have a history of COPD. Retesting revealed her to have persistent hypoxia without significant symptoms and I think she is going to benefit from having oxygen at the half-way. She will be discharged back to the half-way with medications as noted in the reconciliation sheet. She will continue her oxygen and this will be followed at the half-way. LEONIDES
== END 2018-09-11 10:20 ==
LOC: ED 21:38 → MEDSURG B 09-10 00:13
PROVIDERS: ADMIT Family Medicine; ATTEND Family Medicine
DX: F20.9 Schizophrenia, unspecified; I10 Essential (primary) hypertension; R09.02 Hypoxemia; E11.9 Type 2 diabetes mellitus without complications; R19.7 Diarrhea, unspecified

== ENCOUNTER 2018-10-20 10:25 | Outpatient (CLI) | payer OTHER | END 2018-10-20 10:26 | disposition home or self-care (01) | LOC: NONPT 10:25 | PROVIDERS: ATTEND Family Medicine | DX: E11.9 Type 2 diabetes mellitus without complications (principal); Z79.899 Other long term (current) drug therapy | CPT/HCPCS: 80053; 83036; 85025 ==

== ENCOUNTER 2023-02-17 10:48 | Observation (INO) ==
[2023-02-17] MEDS ORDERED: SODIUM CHLORIDE 1,000 ML IV STA (11:00)
[2023-02-17] MEDS ORDERED: SODIUM CHLORIDE 1,000 ML IV ONE (11:08)
[2023-02-17 11:25] LABS: BASOPHILS % (AUTO) 0.3 % (0.0-3.0); EOSINOPHILS % (AUTO) 0.3 % (0.0-7.0); HEMATOCRIT 38.5 % (37.0-47.0); HEMOGLOBIN 12.3 g/dl (12.0-16.0); IMMATURE GRANULOCYTE % (AUTO) 0.3 % (0.0-5.0); LYMPHOCYTES # (AUTO) 0.6 K/uL (0.60-3.4); LYMPHOCYTES % (AUTO) 18.8 (10.0-50.0); MEAN CORPUSCULAR HEMOGLOBIN 26.3 pg (27.0-31.0); MEAN CORPUSCULAR HGB CONC 31.9 (31.8-35.4); MEAN CORPUSCULAR VOLUME 82.4 fl (81.0-99.0); MONOCYTES # (AUTO) 0.4 K/uL (0.4-2.0); MONOCYTES % (AUTO) 13.1 (0-10); NEUTROPHILS # (AUTO) 2.2 K/ul (2.0-6.9); NEUTROPHILS % (AUTO) 67.2 % (42.2-75.2); PLATELET COUNT 197 10^3/uL (140-440); RDW COEFFICIENT OF VARIATION 14.2 % (11.6-14.8); RED BLOOD COUNT 4.67 10^6/ul (4.20-5.40)
[2023-02-17] MEDS ORDERED: DEXTROSE 50%-WATER ABBOJECT ONE (11:26)
[2023-02-17] MEDS ORDERED: DEXTROSE 50%-WATER ABBOJECT IVP ONE (11:34)
[2023-02-17 11:39] LABS: ALANINE AMINOTRANSFERASE 14.2 U/L (0-35); ALBUMIN 3.83 g/dL (3.5-5.0); ALKALINE PHOSPHATASE 70.4 U/L (53-141); ASPARTATE AMINO TRANSFERASE 29.3 U/L (14-36); CALCIUM 8.42 mg/dL (8.4-10.2); CARBON DIOXIDE 29.5 mmol/L (22-30.0); CHLORIDE 100.1 mmol/L (98-107); CREATININE 1.26 mg/dL (0.60-1.30); SODIUM 136.5 mmol/L (134.5-145); TOTAL PROTEIN 7.61 g/dL (6.3-8.2)
[2023-02-17 11:44] LABS: SARS COV-2 RNA RAPID NAAT POSITIVE (NEGATIVE)
[2023-02-17 11:47] LABS: ACETAMINOPHEN < 10.0 ug/ml (10-30); GLUCOSE 35.2 mg/dL (74-106); SALICYLATE < 1.00 mg/dL (0-20.0)
[2023-02-17 12:04] LABS: BILIRUBIN,URINE Negative (NEGATIVE); CLARITY,URINE Clear (CLEAR); COLOR,URINE Yellow (YELLOW); GLUCOSE, URINE (UA) Negative (NEGATIVE); KETONES,URINE Negative (NEGATIVE); LEUKOCYTE ESTERASE ,URINE Negative (NEGATIVE); NITRITE,URINE Negative (NEGATIVE); PH,URINE 5.5 (5-9); PROTEIN,URINE Negative (NEGATIVE); URINE, BLOOD Negative (NEGATIVE); UROBILINOGEN,URINE 0.2 (0.2)
[2023-02-17 12:18] LABS: AMPHETAMINE SCREEN,URINE NEGATIVE (NEGATIVE); BARBITURATE SCREEN,URINE NEGATIVE (NEGATIVE); BENZODIAZEPINES SCREEN,URINE NEGATIVE (NEGATIVE); CANNABINOID SCREEN,URINE NEGATIVE (NEGATIVE); COCAIN SCREEN,URINE NEGATIVE (NEGATIVE); METHADONE URINE SCREEN NEGATIVE (NEGATIVE); METHAMPHETAMINES SCREEN,URINE NEGATIVE (NEGATIVE); OPIATE SCREEN,URINE NEGATIVE (NEGATIVE); OXYCODONE URINE SCREEN NEGATIVE (NEGATIVE); PHENCYCLIDINE SCREEN,URINE NEGATIVE (NEGATIVE); TRICYCLIC ANTIDEPRESSANTS URIN NEGATIVE (NEGATIVE)
--- NOTE | 2023-02-17 12:18 | CT ---
EXAMINATION: HEAD CT WITHOUT CONTRAST HISTORY: AMS. TECHNIQUE: Noncontrast CT of the brain was performed with images acquired from skull base to vertex. 2-D coronal and sagittal reformatted images were obtained from the axial source images. Contrast Dose: None. CT Dose Reduction Techniques Performed: Yes. COMPARISON: Reviewed. FINDINGS: Topogram demonstrates no significant abnormality. Intraparenchymal hemorrhage: None. Parenchyma: Normal hanson-white differentiation. No mass effect or midline shift. Extra-axial spaces and basal cisterns: Normal. Ventricles: Normal size and morphology for age. Mild scattered multifocal paranasal sinus disease. Orbits: Normal visualized portions. Sella/Skull Base: Normal. Other: Scalp and visualized soft tissues are normal. Calvarium is normal. IMPRESSION: 1. No intracranial hemorrhage. 2. Mild scattered multifocal paranasal sinus disease. All CT scans are performed using dose optimization techniques as appropriate to the performed exam an d include at least one of the following: Automated exposure control, adjustment of the mA and/or kV according t o size, and the use of iterative reconstruction technique.
--- NOTE | 2023-02-17 14:02 | ED.PDOC ---
General ED Provider: Dr. SAM HAWKINS MD Chief Complaint: Altered Mental Status Stated Complaint: New onset of COVID. Time Seen by Provider: 02/17/23 10:54 Mode of Arrival: Stretcher Information Source: [facility] (To medical leader are here with the patient. They stated the patient had been diagnosed with COVID last night. And at this time the patient is very unresponsive.) Exam Limitations: Clinical condition (Blood sugar is less than 70. ) Primary Care Provider: ROSEMARY MATUTE Nursing and Triage Documentation Reviewed and Agree: Yes What is Opioid Naive?: *Opioid Naive implies the patient is not already taking opioids or not chronically receiving opioids on a daily basis. *PRN dosing is not "usually" associated with tolerance. *Patients are at higher risk of over-sedation and aspiration. What is Opioid Tolerant?: *Opioid Tolerance implies less than the expected response to an opioid. *Acquired tolerance is defined by the patient taking 60mg of oral morphine daily (or equianalgesic dose of another opioid) for 1 week or more. *Often associated with chronic pain. *May take more than usual dose to achieve desired pain control. Review of Systems Review Of Systems Constitutional: Reports No symptoms [facility] Medical History Dry eye H04.129 - Dry eye syndrome of unspecified lacrimal gland (ICD-10) Schizophrenia F20.9 - Schizophrenia, unspecified (ICD-10) Constipation K59.00 - Constipation, unspecified (ICD-10) Hyperlipemia E78.5 - Hyperlipidemia, unspecified (ICD-10) Hypokalemia E87.6 - Hypokalemia (ICD-10) GERD (gastroesophageal reflux disease) K21.9 - Gastro-esophageal reflux disease without esophagitis (ICD-10) COPD (chronic obstructive pulmonary disease) J44.9 - Chronic obstructive pulmonary disease, unspecified (ICD-10) Vitamin D deficiency E55.9 - Vitamin D deficiency, unspecified (ICD-10) Vitamin B 12 deficiency E53.8 - Deficiency of other specified B group vitamins (ICD-10) Essential (primary) hypertension I10 - Essential (primary) hypertension (ICD-10) Diabetes mellitus E11.9 - Type 2 diabetes mellitus without complications (ICD-10) Physical Exam Physical Exam Appearance: Reports Ill-appearing Respiratory: Reports Airway patent, Breath sounds diminished and Wheezes (Bilateral) Cardiovascular: Reports RRR Musculoskeletal: Reports Edema (Lower extremity edema.) Course Course 02/17/23 11:19 02/17/23 11:19 Orders, Labs, Meds: Lab Review 02/17/23 02/17/23 02/17/23 11:05 11:19 11:30 WBC 3.20 L RBC 4.67 Hgb 12.3 Hct 38.5 MCV 82.4 MCH 26.3 L MCHC 31.9 RDW Coeff of Bianka 14.2 Plt Count 197 Immature Gran % (Auto) 0.3 Neut % (Auto) 67.2 Lymph % (Auto) 18.8 [place] % (Auto) 13.1 H Eos % (Auto) 0.3 Baso % (Auto) 0.3 Neut # (Auto) 2.2 Lymph # (Auto) 0.6 [place] # (Auto) 0.4 Eos # (Auto) 0.0 Baso # (Auto) 0.0 Immature Gran # (Auto) 0.0 Sodium 136.5 Potassium 3.30 L Chloride 100.1 Carbon Dioxide 29.5 Anion Gap 10.20 BUN 35.0 H Creatinine 1.26 Estimated GFR (MDRD) 40.00 BUN/Creatinine Ratio 27.77 Glucose 35.2 L* Calcium 8.42 Total Bilirubin 0.30 AST 29.3 ALT 14.2 Alkaline Phosphatase 70.4 Total Protein 7.61 Albumin 3.83 Globulin 3.78 Albumin/Globulin Ratio 1.01 Urine Color Yellow Urine Clarity Clear Urine pH 5.5 Ur Specific Winter 1.020 Urine Protein Negative Urine Glucose (UA) Negative Urine Ketones Negative Urine Blood Negative Urine Nitrite Negative Urine Bilirubin Negative Urine Urobilinogen 0.2 Ur Leukocyte Esterase Negative Salicylate Level mg/dL < 1.00 Urine Opiates Screen Negative Ur Oxycodone Screen Negative Urine Methadone Screen Negative Acetaminophen < 10.0 L Ur Barbiturates Screen Negative U Tricyclic Antidepress Negative Ur Phencyclidine Scrn Negative Ur Amphetamine Screen Negative U Methamphetamines Scrn Negative U Benzodiazepines Scrn Negative Urine Cocaine Screen Negative U Cannabinoids Screen Negative SARS CoV-2 RNA Rapid BERNABE Positive H Orders Category Date Time Status PLACE PATIENT OBSERVATION .TO MEDSURG (MONITORED BED ADMISSION 02/17/23 14:04 Active ) EKG-(ED ONLY) Stat CARDIO 02/17/23 11:02 Completed GIVE HS SNACK 2100 CARE 02/17/23 14:06 Active TELEMETRY MONITORING TELE CARE 02/17/23 14:05 Active ADA 1800 LE. DIET DIETARY 02/17/23 Lunch Ordered HS SNACK DIETARY 02/17/23 Dinner Ordered ACCUCHECK (ED) [ED ACCUCHECK ASSESSMENT] .ONCE EMERGENCY 02/17/23 11:00 Active ED SEAM CLOSER APPLIED ONCE EMERGENCY 02/17/23 11:02 Active ED IV/MEDIPORT/POWERPORT .ONCE EMERGENCY 02/17/23 11:00 Active ACETAMINOPHEN Stat LAB 02/17/23 11:19 Completed BLOOD CULTURE (ED ONLY) Stat LAB 02/17/23 11:19 Received CBC W/ AUTO DIFF Stat LAB 02/17/23 11:19 Completed CBC W/ AUTO DIFF Timed LAB 02/18/23 06:00 Ordered COMPREHENSIVE METABOLIC PANEL Stat LAB 02/17/23 11:19 Completed COMPREHENSIVE METABOLIC PANEL Timed LAB 02/18/23 06:00 Ordered COVID [SARS COV-2 RNA RAPID BERNABE] Stat LAB 02/17/23 11:05 Completed DRUG SCREEN, URINE, RAPID Stat LAB 02/17/23 11:30 Completed SALICYLATE Stat LAB 02/17/23 11:19 Completed URINALYSIS C & S IF INDICATED Stat LAB 02/17/23 11:30 Completed 0.9 % Sodium Chloride [Saline Flush] Meds 02/17/23 11:00 Active 1 syr IVF PRN PRN Dextrose 50 % in Water [Dextrose 50%-Water Abboject] Meds 02/17/23 11:26 Discontinued 50 ml .ROUTE .STK-MED ONE Dextrose 50 % in Water [Dextrose 50%-Water Abboject] Meds 02/17/23 11:34 Discontinued 50 ml IVP ONCE ONE Sodium Chloride 0.9% [Sodium Chloride] 1,000 ml Meds 02/17/23 11:00 Discontinued IV BOLUS Sodium Chloride 0.9% [Sodium Chloride] 1,000 ml Meds 02/17/23 11:08 Discontinued IV BOLUS RESUSCITATION STATUS Routine OTHERS 02/17/23 14:[address] HEAD W/O CONTRAST Stat RADS 02/17/23 11:36 Completed Medications Generic Name Dose Route Start Last Admin Trade Name Freq PRN Reason Stop Dose Admin Acetaminophen 650 mg 02/17/23 23:59 Acetaminophen 325 Mg Tablet PO Q4H PRN FEVER/PAIN Albuterol Sulfate 2 puff 02/17/23 17:52 Albuterol Sulfate 8 Gm Inhaler IH Q4H PRN Wheezing Artificial Tears 1 drop 02/17/23 18:51 Polyvinyl Alcohol 15 Ml Opth Kalyn EACHEYE Q12H PRN Dry Eye Cholecalciferol 1,000 unit 02/17/23 21:00 02/17/23 20:27 Cholecalciferol (Vitamin D3) 1,000 Unit (25 Mcg) Tablet PO 1,000 unit BID FERNANDO Administration Dextrose 50 ml 02/17/23 14:55 02/17/23 18:24 Dextrose 50 % In Water 50 Ml Disp.Syrin IVP 50 ml ONCE PRN Administration Hypoglycemia Docusate Sodium 100 mg 02/17/23 19:12 Docusate Sodium 100 Mg Capsule PO Q12H PRN constipation Duloxetine HCl 40 mg 02/19/23 21:00 Duloxetine Hcl 20 Mg Capsule.Dr [facility] Duloxetine HCl 60 mg 02/17/23 21:00 02/17/23 20:27 Duloxetine Hcl 30 Mg Capsule. PO 60 mg [id number] Administration Empagliflozin 10 mg 02/18/23 09:00 Empagliflozin 10 Mg Tablet PO DAILY FERNANDO Enoxaparin Sodium 40 mg 02/18/23 09:00 Enoxaparin Sodium 40 Mg/0.4 Ml Syr SUBCUT DAILY FERNANDO Famotidine 20 mg 02/18/23 09:00 Famotidine 20 Mg Tablet PO DAILY [facility] Hydrochlorothiazide 50 mg 02/18/23 09:00 Hydrochlorothiazide 25 Mg Tablet PO DAILY FERNANDO Potassium Chloride/Dextrose/Sod Cl 1,000 mls @ 100 mls/hr 02/17/23 18:36 02/18/23 03:42 D5%-1/2ns-Kcl 20 Meq/L Iv Kalyn IV 100 mls/hr .Q10H FERNANDO Administration Magnesium Hydroxide 30 ml 02/17/23 17:52 Magnesium Hydroxide 30 Ml Cup PO DAILY PRN Constipation Metoprolol Tartrate 50 mg 02/17/23 21:00 02/17/23 20:27 Metoprolol Tartrate 50 Mg Tablet PO 50 mg BID FERNANDO Administration Nitrofurantoin Macrocrystals 50 mg 02/18/23 21:00 Nitrofurantoin Monohyd/M-Cryst 100 Mg Capsule PO 02/21/23 20:59 BEDTIME FERNANDO Non-Formulary Medication 5 mg 02/18/23 09:00 Amiloride PO DAILY FERNANDO Non-Formulary Medication 2 inh 02/17/23 21:00 Oopaskruzr-Fselkbyo-[id number] [Breztri Aerosphere] IH BID FERNANDO Non-Formulary Medication 250 mcg 02/18/23 09:00 Cyanocobalamin (Vitamin B-12) PO DAILY FERNANDO Non-Formulary Medication 3 mg 02/18/23 09:00 Plecanatide [Trulance] PO DAILY FERNANDO Olanzapine 5 mg 02/17/23 21:00 02/17/23 20:27 Olanzapine 2.5 Mg Tablet PO 5 mg BID FERNANDO Administration Ondansetron HCl 4 mg 02/17/23 14:55 Ondansetron Hcl/Pf 4 Mg/2 Ml Sdv IVP Q6H PRN Nausea / Vomiting Polyethylene Glycol 17 gm 02/18/23 09:00 Polyethylene Glycol 17 Gm Powd.Pack PO DAILY FERNANDO Potassium Chloride 10 meq 02/18/23 09:00 Potassium Chloride 10 Meq Capsule.Er PO DAILY [facility] Pravastatin Sodium 20 mg 02/17/23 21:00 02/17/23 20:28 Pravastatin Sodium 20 Mg Tablet PO 20 mg BEDTIME FERNANDO Administration Sennosides 8.6 mg 02/17/23 19:12 Sennosides 8.6 Mg Tablet PO Q12H PRN CONSTIPATION Sodium Chloride 1 syr 02/17/23 11:00 0.9% Sodium Chloride 10 Ml Disp.Syrin IVF PRN PRN To flush IV Trazodone HCl 25 mg 02/17/23 21:00 02/17/23 20:27 Trazodone Hcl 50 Mg Tablet PO 25 mg BEDTIME FERNANDO Administration Discontinued Medications Generic Name Dose Route Start Last Admin Trade Name Freq PRN Reason Stop Dose Admin Acetaminophen 650 mg 02/17/23 14:55 Acetaminophen 325 Mg Tablet PO Q4H PRN FEVER/PAIN Dextrose 50 ml 02/17/23 11:34 02/17/23 11:36 Dextrose 50 % In Water 50 Ml Disp.Syrin IVP 02/17/23 11:35 50 ml ONCE ONE Administration Empagliflozin 10 mg 02/18/23 09:00 Empagliflozin 10 Mg Tablet PO DAILY FERNANDO Sodium Chloride 1,000 mls @ 1,000 mls/hr 02/17/23 11:00 02/17/23 11:16 Sodium Chloride IV 02/17/23 11:59 Not Given BOLUS STA Sodium Chloride 1,000 mls @ 1,000 mls/hr 02/17/23 11:08 02/17/23 12:40 Sodium Chloride IV 02/17/23 12:07 Infused BOLUS ONE Infusion Potassium Chloride/Dextrose/Sod Cl 1,000 mls @ 50 mls/hr 02/17/23 15:00 02/17/23 15:12 D5%-1/2ns-Kcl 20 Meq/L Iv Kalyn IV 50 mls/hr .Q20H FERNANDO Administration Nitrofurantoin Macrocrystals 50 mg 02/17/23 21:00 02/17/23 21:29 Nitrofurantoin Monohyd/M-Cryst 100 Mg Capsule PO 02/20/23 20:59 Not Given BEDTIME FERNANDO Non-Formulary Medication 5 mg 02/18/23 09:00 Dapagliflozin Propanediol [Farxiga] PO DAILY FERNANDO Non-Formulary Medication 1 each 02/17/23 17:52 Sennosides-Docusate Sodium [Senokot-S] PO Q12HR PRN Constipation Vital Signs: Temp Pulse Resp BP Pulse Ox 02/17/23 10:51 97.0 F L 63 20 172/89 H 99 Physician Progress Note: [] Discharge Plan Discharge Patient Disposition: PLACED OBSERVATION Did you review [place] SOLUTION DESIGN AND ANALYSIS MANAGER for ALL controlled substances?: Not Applicable ED Provider: SAM HAWKINS Condition: Stable Nurys Coma Scale Howard Coma Scale Response Scores: Best Response = 15 Comatose Client = 8 or Less Totally Unresponsive = 3
[2023-02-17] MEDS ORDERED: DEXTROSE 50%-WATER ABBOJECT IVP PRN (14:55)
[2023-02-17] MEDS ORDERED: TYLENOL PO PRN ×2 (14:55→23:59)
[2023-02-17] MEDS ORDERED: ZOFRAN 4 MG/2 ML IVP PRN (14:55)
[2023-02-17] MEDS ORDERED: D5%-1/2NS-KCL 20 MEQ/L IV SOL 1,000 ML IV SCH (15:00)
--- NOTE | 2023-02-17 15:32 | PCM ---
Date of Service Date Seen by Provider: 02/17/23 Time Seen by Provider: 15:10 Admit Day/Time Admission Date: 02/17/23 Admission Time: 15:05 Reason for Admission Chief Complaint: ALTERED MENTAL STATUS, COVID POSITIVE Hospital Provider Hospital Provider: JOAN MARTIN, [facility] Primary Care Physician Primary Care Physician: ROSEMARY MATUTE History of Present Illness History of Present Illness: 87 yo female presented to the ER with altered mental status from local skilled nursing. Patient was found to be unresponsive. Upon arrival to the ER, blood glucose reading was <50. Blood test showed glucose of 35. She was given an amp of D50 and 1L of fluids. Per ER provider, patient was still lethargic prior to arrival to the floor. On arrival to the floor, patient is alert and oriented to person, place, and situation. She denies any complaints at this time. States that she has a cold. Case Discussed With Case Discussed With: Patient's case was discussed with the ER Physicians, Dr. Byers Allergies Allergies Allergy/AdvReac Type Severity Reaction Status Date / Time Penicillins AdvReac Verified 02/17/23 12:37 Sulfa (Sulfonamide AdvReac Verified 02/17/23 12:37 Antibiotics) Current Medications Home Medications acetaminophen 325 mg tablet 325 mg PO Q6H PRN pain/fever 04/28/17 [History Confirmed 02/17/23 Last Taken Unknown] magnesium hydroxide 400 mg/5 mL oral suspension (Milk of Magnesia) 30 ml PO DAILY PRN Constipation 04/28/17 [History Confirmed 02/17/23 Last Taken Unknown] peg 400-propylene glycol 0.4 %-0.3 % eye drops (Systane (propylene glycol)) 1 drp BOTHEYES BID 04/28/17 [History Confirmed 02/17/23 Last Taken Unknown] potassium chloride 10 mEq tablet,extended release (K-Tab) 10 meq PO DAILY 09/09/18 [History Confirmed 02/17/23 Last Taken Unknown] sennosides 8.6 mg-docusate sodium 50 mg tablet (Senokot-S) 1 ea PO BID PRN constipation 09/09/18 [History Confirmed 02/17/23 Last Taken Unknown] Albuterol Sulfate [Albuterol Sulfate Hfa] 2 puff inhalation Q6H PRN Wheezing 09/10/18 [History Confirmed 02/17/23 Last Taken Unknown] amiloride 5 mg tablet 5 mg PO DAILY 09/10/18 [History Confirmed 02/17/23 Last Taken Unknown] duloxetine 20 mg capsule,delayed release (Cymbalta) 20 mg PO .wednesday09/10/18 [History Confirmed 02/17/23 Last Taken Unknown] hydrochlorothiazide 50 mg tablet 50 mg PO DAILY 09/10/18 [History Confirmed 02/17/23 Last Taken Unknown] metoprolol tartrate 50 mg tablet 50 mg PO BID 09/10/18 [History Confirmed 02/17/23 Last Taken Unknown] trazodone 50 mg tablet 25 mg PO BEDTIME 09/10/18 [History Confirmed 02/17/23 Last Taken Unknown] cholecalciferol (vitamin D3) 25 mcg (1,000 unit) tablet (Vitamin D3) 1,000 unit PO BID 02/17/23 [History Confirmed 02/17/23 Last Taken Unknown] cyanocobalamin (vitamin B-12) 250 mcg tablet 250 mcg PO DAILY 02/17/23 [History Confirmed 02/17/23 Last Taken Unknown] dapagliflozin propanediol 5 mg tablet (Farxiga) 5 mg PO DAILY 02/17/23 [History Confirmed 02/17/23 Last Taken Unknown] duloxetine 60 mg capsule,delayed release 60 mg PO .COMPLEX 02/17/23 [History Confirmed 02/17/23 Last Taken Unknown] famotidine 20 mg tablet (Acid Controller) 20 mg PO DAILY 02/17/23 [History Confirmed 02/17/23 Last Taken Unknown] glipizide 10 mg tablet 10 mg PO BID 02/17/23 [History Confirmed 02/17/23 Last Taken Unknown] nitrofurantoin monohydrate/macrocrystals 100 mg capsule 50 mg PO DAILY 02/17/23 [History Confirmed 02/17/23 Last Taken Unknown] olanzapine 5 mg tablet 5 mg PO BID 02/17/23 [History Confirmed 02/17/23 Last Taken Unknown] plecanatide 3 mg tablet (Trulance) 3 mg PO DAILY 02/17/23 [History Confirmed 02/17/23 Last Taken Unknown] polyethylene glycol 3350 17 gram oral powder packet (Miralax) 17 g PO DAILY 02/17/23 [History Confirmed 02/17/23 Last Taken Unknown] pravastatin 20 mg tablet 20 mg PO BEDTIME 02/17/23 [History Confirmed 02/17/23 Last Taken Unknown] Home Acetaminophen (Acetaminophen 325 Mg Tablet) 650 mg PO Q4H PRN PRN Reason: FEVER/PAIN Dextrose (Dextrose 50 % In Water 50 Ml Disp.Syrin) 50 ml IVP ONCE PRN PRN Reason: Hypoglycemia Potassium Chloride/Dextrose/Sod Cl (D5%-1/2ns-Kcl 20 Meq/L Iv Kalyn) 1,000 mls @ 50 mls/hr IV .Q20H FERNANDO Last Admin: 02/17/23 15:12 Dose: 50 mls/hr Ondansetron HCl (Ondansetron Hcl/Pf 4 Mg/2 Ml Sdv) 4 mg IVP Q6H PRN PRN Reason: Nausea / Vomiting Sodium Chloride (0.9% Sodium Chloride 10 Ml Disp.Syrin) 1 syr IVF PRN PRN PRN Reason: To flush IV Discontinued Medications Dextrose (Dextrose 50 % In Water 50 Ml Disp.Syrin) 50 ml IVP ONCE ONE Stop: 02/17/23 11:35 Last Admin: 02/17/23 11:36 Dose: 50 ml Sodium Chloride (Sodium Chloride) 1,000 mls @ 1,000 mls/hr IV BOLUS STA Stop: 02/17/23 11:59 Last Admin: 02/17/23 11:16 Dose: Not Given Sodium Chloride (Sodium Chloride) 1,000 mls @ 1,000 mls/hr IV BOLUS ONE Stop: 02/17/23 12:07 Last Infusion: 02/17/23 12:40 Dose: Infused Opioid Naive vs. Tolerant Does Patient Take Opioids?: No Is Patient Opioid Naive?: No What is Opioid Naive?: *Opioid Naive implies the patient is not already taking opioids or not chronically receiving opioids on a daily basis. *PRN dosing is not "usually" associated with tolerance. *Patients are at higher risk of over-sedation and aspiration. Is Patient Opioid Tolerant?: No What is Opioid Tolerant?: *Opioid Tolerance implies less than the expected response to an opioid. *Acquired tolerance is defined by the patient taking 60mg of oral morphine daily (or equianalgesic dose of another opioid) for 1 week or more. *Often associated with chronic pain. *May take more than usual dose to achieve desired pain control. Review of Systems Constitutional: Reports Other ("I got a cold") Head: Reports Normocephalic Eyes: Reports No symptoms Ears: Reports No symptoms Nose: Reports No symptoms Mouth: Reports No symptoms Throat: Reports No symptoms Cardiovascular: Reports No symptoms Respiratory: Reports No symptoms Gastrointestinal: Reports No symptoms Genitourinary: Reports No Symptoms Musculoskeletal: Reports No symptoms Endocrine: Reports No symptoms Hematology: Reports No symptoms Immunology: Reports No symptoms Neurological: Reports No symptoms Psychiatric: Reports No symptoms Physical examination Most Recent Vital Signs: Most Recent Vital Signs Temperature 97.0 F L 02/17/23 10:51 Temperature Source Infrared 02/17/23 10:51 Pulse Rate 63 02/17/23 10:51 Respiratory Rate 20 02/17/23 10:51 Blood Pressure 172/89 H 02/17/23 10:51 O2 Sat by Pulse Oximetry 99 02/17/23 10:51 Height 5 ft 5 in 02/17/23 10:51 Weight 149 lb 14.629 oz 02/17/23 10:51 Telemetry Heart Rate 75 09/11/18 07:00 Appearance: Positive No Apparent Distress and Alert and Oriented x3 Skin: Positive Warm and Good Color HEENT: Positive Normocephalic and PERRLA Neck: Positive Supple and Midline Trachea Chest/Lungs: Positive Symmetrical With Equal Breath Sounds, Clear to Auscultation Bilaterally and Good Air Movement all 4 Lung [place] Heart: Positive RRR and Pulses Normal GI/: Positive Soft, Nontender, Bowel Sounds Normal and No Distention Musculoskeletal: Positive Not Examined Extremities: Positive Intact Peripheral Pulses, Stable Joints Without Laxity, Good ROM in All Joints and Other (peripheral vascular disease discoloration/dusky bilateral lower extremities) Neurological: Positive Sensation Intact, Motor intact, Reflexes Intact, Alert and Oriented Labs This Visit Labs This Visit: Labs This Visit 02/17/23 02/17/23 02/17/23 11:05 11:19 11:30 WBC 3.20 L RBC 4.67 Hgb 12.3 Hct 38.5 MCV 82.4 MCH 26.3 L MCHC 31.9 RDW Coeff of Bianka 14.2 Plt Count 197 Immature Gran % (Auto) 0.3 Neut % (Auto) 67.2 Lymph % (Auto) 18.8 [place] % (Auto) 13.1 H Eos % (Auto) 0.3 Baso % (Auto) 0.3 Neut # (Auto) 2.2 Lymph # (Auto) 0.6 [place] # (Auto) 0.4 Eos # (Auto) 0.0 Baso # (Auto) 0.0 Immature Gran # (Auto) 0.0 Sodium 136.5 Potassium 3.30 L Chloride 100.1 Carbon Dioxide 29.5 Anion Gap 10.20 BUN 35.0 H Creatinine 1.26 Estimated GFR (MDRD) 40.00 BUN/Creatinine Ratio 27.77 Glucose 35.2 L* Calcium 8.42 Total Bilirubin 0.30 AST 29.3 ALT 14.2 Alkaline Phosphatase 70.4 Total Protein 7.61 Albumin 3.83 Globulin 3.78 Albumin/Globulin Ratio 1.01 Urine Color Yellow Urine Clarity Clear Urine pH 5.5 Ur Specific [place] 1.020 Urine Protein Negative Urine Glucose (UA) Negative Urine Ketones Negative Urine Blood Negative Urine Nitrite Negative Urine Bilirubin Negative Urine Urobilinogen 0.2 Ur Leukocyte Esterase Negative Salicylate Level mg/dL < 1.00 Urine Opiates Screen Negative Ur Oxycodone Screen Negative Urine Methadone Screen Negative Acetaminophen < 10.0 L Ur Barbiturates Screen Negative U Tricyclic Antidepress Negative Ur Phencyclidine Scrn Negative Ur Amphetamine Screen Negative U Methamphetamines Scrn Negative U Benzodiazepines Scrn Negative Urine Cocaine Screen Negative U Cannabinoids Screen Negative SARS CoV-2 RNA Rapid BERNABE Positive H Imaging Imaging: EXAMINATION: HEAD CT WITHOUT CONTRAST FINDINGS: Topogram demonstrates no significant abnormality. Intraparenchymal hemorrhage: None. Parenchyma: Normal hanson-white differentiation. No mass effect or midline shift. Extra-axial spaces and basal cisterns: Normal. Ventricles: Normal size and morphology for age. Mild scattered multifocal paranasal sinus disease. Orbits: Normal visualized portions. Sella/Skull Base: Normal. Other: Scalp and visualized soft tissues are normal. Calvarium is normal. IMPRESSION: 1. No intracranial hemorrhage. 2. Mild scattered multifocal paranasal sinus disease Review Statement Review Statement: I have independently reviewed and interpreted the labs/EKGs/imaging that were ordered by the ER provider. I have reviewed all outside records that are available currently in our EMR including imaging/notes/labs from previous visits. Plan Plan: 1. Hypoglycemia - D5 1/2NS+20 mEq KCL@50mL/hr, hold all diabetic medications, accuchecks Q2H 2. Acute Metabolic Encephalopathy - Resolved upon arrival to floor, monitor 3. Covid-19 - asymptomatic at this time, monitor 4. Hypokalemia - mild, replace and monitor 5. COPD - chronic, not in exacerbation, wears 2L/nc prn at skilled nursing, monitor 6. Diabetes Mellitus, Type 2 - chronic, see #1 for current treatment plan DVT Prophylaxis: Lovenox Time Spent: Greater than 80 minutes spent with patient, 50% of the time spent with this patient was devoted to counseling and coordination of care. Advanced Care Plannin minutes spent discussing advance care planning. Disposition: Admit to: Med/Surg Observation Full Code Discussed Plan of Care with Dr. James Brownlee. Medications Medication Orders: Medications Ordered Category Date Time Status 0.9 % Sodium Chloride [Saline Flush] Meds 02/17/23 11:00 Active 1 syr IVF PRN PRN Acetaminophen [Tylenol] Meds 02/17/23 14:55 Active 650 mg PO Q4H PRN Dextrose 50 % in Water [Dextrose 50%-Water Abboject] Meds 02/17/23 14:55 Active 50 ml IVP ONCE PRN Ondansetron HCl/Pf [Zofran 4 mg/2 ml] Meds 02/17/23 14:55 Active 4 mg IVP Q6H PRN Potassium Chloride/D5-0.45NACL [D5%-1/2Ns-KCl 20 Meq/l Meds 02/17/23 15:00 Active IV Kalyn] 1,000 ml IV 50 mls/hr
[2023-02-17 16:12] VITALS: BMI 24.6
[2023-02-17] MEDS ORDERED: MILK OF MAGNESIA PO PRN (17:52)
[2023-02-17] MEDS ORDERED: VENTOLIN HFA IH PRN (17:52)
[2023-02-17] MEDS ORDERED: SENNOSIDES DOCUSATE SODIUM PO PRN (17:52)
[2023-02-17] MEDS ORDERED: ARTIFICIAL TEARS OPTH SOL EACHEYE PRN (18:51)
[2023-02-17] MEDS: D5%-1/2NS-KCL 20 MEQ/L IV SOL 1,000 ML IV SCH (19:05)
[2023-02-17] MEDS ORDERED: SENNA PO PRN (19:12)
[2023-02-17] MEDS ORDERED: COLACE PO PRN (19:12)
[2023-02-17] MEDS: LOPRESSOR PO SCH (20:27)
[2023-02-17] MEDS: VITAMIN D PO SCH (20:27)
[2023-02-17] MEDS: ZYPREXA PO SCH (20:27)
[2023-02-17] MEDS ORDERED: PRAVACHOL PO SCH (21:00)
[2023-02-17] MEDS ORDERED: CYMBALTA PO SCH (21:00)
[2023-02-17] MEDS ORDERED: MACROBID PO SCH (21:00)
[2023-02-17] MEDS ORDERED: DESYREL PO SCH (21:00)
[2023-02-18] MEDS: D5%-1/2NS-KCL 20 MEQ/L IV SOL 1,000 ML IV SCH (03:42)
[2023-02-18 05:25] LABS: BASOPHILS % (AUTO) 0.2 % (0.0-3.0); EOSINOPHILS # (AUTO) 0.1 K/ul (0.0-0.7); EOSINOPHILS % (AUTO) 3.2 % (0.0-7.0); HEMATOCRIT 33.6 % (37.0-47.0); HEMOGLOBIN 10.4 g/dl (12.0-16.0); IMMATURE GRANULOCYTE % (AUTO) 0.5 % (0.0-5.0); LYMPHOCYTES # (AUTO) 0.9 K/uL (0.60-3.4); LYMPHOCYTES % (AUTO) 19.6 (10.0-50.0); MEAN CORPUSCULAR HEMOGLOBIN 26.4 pg (27.0-31.0); MEAN CORPUSCULAR VOLUME 85.3 fl (81.0-99.0); MONOCYTES # (AUTO) 0.5 K/uL (0.4-2.0); MONOCYTES % (AUTO) 11.9 (0-10); NEUTROPHILS # (AUTO) 2.8 K/ul (2.0-6.9); NEUTROPHILS % (AUTO) 64.6 % (42.2-75.2); PLATELET COUNT 161 10^3/uL (140-440); RDW COEFFICIENT OF VARIATION 14.1 % (11.6-14.8); RED BLOOD COUNT 3.94 10^6/ul (4.20-5.40); WHITE BLOOD COUNT 4.38 K/ul (4.6-10.2)
[2023-02-18 05:38] LABS: ALANINE AMINOTRANSFERASE 15.8 U/L (0-35); ALBUMIN 3.27 g/dL (3.5-5.0); ALKALINE PHOSPHATASE 66.7 U/L (53-141); ASPARTATE AMINO TRANSFERASE 20.9 U/L (14-36); BILIRUBIN,TOTAL 0.2 mg/dL (0.2-1.3); BLOOD UREA NITROGEN 35.7 mg/dL (7-17); CALCIUM 8.03 mg/dL (8.4-10.2); CARBON DIOXIDE 29.3 mmol/L (22-30.0); CHLORIDE 102.2 mmol/L (98-107); CREATININE 1.24 mg/dL (0.60-1.30); POTASSIUM 3.82 mmol/L (3.5-5.1); SODIUM 136.4 mmol/L (134.5-145); TOTAL PROTEIN 6.39 g/dL (6.3-8.2)
[2023-02-18] MEDS: NON-FORMULARY MEDICATION (Budesonide-Glycopyr-Formoterol [Breztri Aerosphere] 160-9-4.8 mc IH SCH ×2 (07:15→09:07)
[2023-02-18] MEDS ORDERED: NON-FORMULARY MEDICATION (Dapagliflozin Propanediol [Farxiga] 5 mg tablet) PO SCH (09:00)
[2023-02-18] MEDS ORDERED: MIRALAX PO SCH (09:00)
[2023-02-18] MEDS ORDERED: AMILORIDE 5 MG PO SCH (09:00)
[2023-02-18] MEDS ORDERED: LOVENOX SUBCUT SCH (09:00)
[2023-02-18] MEDS ORDERED: CYANOCOBALAMIN 250 MCG PO SCH (09:00)
[2023-02-18] MEDS ORDERED: JARDIANCE PO SCH ×2 (09:00)
[2023-02-18] MEDS ORDERED: PEPCID PO SCH (09:00)
[2023-02-18] MEDS ORDERED: MICRO-K CAP PO SCH (09:00)
[2023-02-18] MEDS ORDERED: HYDROCHLOROTHIAZIDE PO SCH (09:00)
[2023-02-18] MEDS: LOPRESSOR PO SCH (09:06)
[2023-02-18] MEDS: ZYPREXA PO SCH (09:06)
[2023-02-18] MEDS: VITAMIN D PO SCH (09:06)
--- NOTE | 2023-02-18 09:35 | DCSUM ---
Admission Date Admission Date: 02/17/23 Discharge Date Discharge Date: 02/18/23 Admission Diagnosis Admission Diagnosis: 1. Hypoglycemia 2. Acute Metabolic Encephalopathy 3. Covid-19 4. Hypokalemia 5. COPD 6. Diabetes Mellitus, Type 2 Discharge Diagnosis Discharge Diagnosis: 1. Hypoglycemia - Resolved 2. Acute Metabolic Encephalopathy - Resolved 3. Covid-19 - Stable 4. Hypokalemia - Resolved 5. COPD - Chronic, Stable 6. Diabetes Mellitus, Type 2 - Chronic, stable 7. Conjunctivitis, bilateral Hospital Provider Hospital Provider: JOAN MARTIN, [facility] Primary Care Physician Primary Care Physician: ROSEMARY MATUTE Summary of History and Physical Summary of History and Physical: 87 yo female presented to the ER with altered mental status from local [facility]. Patient was found to be unresponsive. Upon arrival to the ER, blood glucose reading was <50. Blood test showed glucose of 35. She was given an amp of D50 and 1L of fluids. Per ER provider, patient was still lethargic prior to arrival to the floor. On arrival to the floor, patient is alert and oriented to person, place, and situation. She denies any complaints at this time. States that she has a cold. Hospital Course Subjective: During stay for treatment of hypoglycemia, patient received D5 1/2 NS +20 KCL @75mL/hr. Blood glucose returned to normal limits. Patient tolerating diet well. Potassium was replaced and returned to normal limits. Unknown length of Covid-19 so this provider did not start paxlovid or remdesivir. Patient is on baseline oxygen requirements of 2L prn and has no other symptoms or complaints. All home medications continued with no changes made. Green discharge noted on bilateral conjunctiva this am - d/c with ofloxacin drops for treatment of bacterial conjunctivitis Appearance: No Apparent Distress and Alert HEENT: MMM and Supple CVS: No Murmur and No Rubs Abdomen: Soft, Non-Tender and No Distention Respiratory: No Dyspnea Extremities: No Edema Vital Signs: Most Recent Vital Signs Temperature 98.6 F 02/18/23 05:30 Temperature Source Oral 02/18/23 05:30 Temperature Source Infrared 02/17/23 10:51 Pulse Rate 70 02/18/23 08:00 Respiratory Rate 18 02/18/23 05:30 Blood Pressure 100/55 L 02/18/23 05:30 Blood Pressure Mean 70 02/18/23 05:30 Blood Pressure Left Arm 155/93 02/17/23 15:05 Blood Pressure Location Right Arm 02/18/23 05:30 Blood Pressure Position Supine 02/18/23 05:30 O2 Sat by Pulse Oximetry 96 02/18/23 05:30 Oxygen Delivery Method Nasal Cannula 02/18/23 09:00 Oxygen Flow Rate 2 02/18/23 08:00 Height 5 ft 5 in 02/17/23 15:05 Weight 148 lb 02/17/23 15:05 Telemetry Type Bedside Monitor 02/18/23 07:00 Telemetry Monitoring Continues 02/18/23 07:00 Telemetry Heart Rate 70 02/18/23 07:00 Telemetry SPO2 94 02/18/23 07:00 EKG [place] Interval 0.18 02/18/23 07:00 EKG QRS Interval 0.13 H 02/18/23 07:00 Telemetry Strip Reading SR w/ BBB 02/18/23 07:00 Lab Results Last 24 Hours: 02/18/23 02/17/23 02/17/23 05:19 11:30 11:19 WBC 4.38 L 3.20 L RBC 3.94 L 4.67 Hgb 10.4 L 12.3 Hct 33.6 L 38.5 MCV 85.3 82.4 MCH 26.4 L 26.3 L MCHC 31.0 L 31.9 RDW Coeff of Bianka 14.1 14.2 Plt Count 161 197 Immature Gran % (Auto) 0.5 0.3 Neut % (Auto) 64.6 67.2 Lymph % (Auto) 19.6 18.8 [place] % (Auto) 11.9 H 13.1 H Eos % (Auto) 3.2 0.3 Baso % (Auto) 0.2 0.3 Neut # (Auto) 2.8 2.2 Lymph # (Auto) 0.9 0.6 [place] # (Auto) 0.5 0.4 Eos # (Auto) 0.1 0.0 Baso # (Auto) 0.0 0.0 Immature Gran # (Auto) 0.0 0.0 Sodium 136.4 136.5 Potassium 3.82 3.30 L Chloride 102.2 100.1 Carbon Dioxide 29.3 29.5 Anion Gap 8.72 10.20 BUN 35.7 H 35.0 H Creatinine 1.24 1.26 Estimated GFR (MDRD) 41.00 40.00 BUN/Creatinine Ratio 28.79 27.77 Glucose 201.0 H D 35.2 L* Calcium 8.03 L 8.42 Total Bilirubin 0.20 0.30 AST 20.9 29.3 ALT 15.8 14.2 Alkaline Phosphatase 66.7 70.4 Total Protein 6.39 7.61 Albumin 3.27 L 3.83 Globulin 3.12 3.78 Albumin/Globulin Ratio 1.04 1.01 Urine Color Yellow Urine Clarity Clear Urine pH 5.5 Ur Specific [place] 1.020 Urine Protein Negative Urine Glucose (UA) Negative Urine Ketones Negative Urine Blood Negative Urine Nitrite Negative Urine Bilirubin Negative Urine Urobilinogen 0.2 Ur Leukocyte Esterase Negative Salicylate Level mg/dL < 1.00 Urine Opiates Screen Negative Ur Oxycodone Screen Negative Urine Methadone Screen Negative Acetaminophen < 10.0 L Ur Barbiturates Screen Negative U Tricyclic Antidepress Negative Ur Phencyclidine Scrn Negative Ur Amphetamine Screen Negative U Methamphetamines Scrn Negative U Benzodiazepines Scrn Negative Urine Cocaine Screen Negative U Cannabinoids Screen Negative SARS CoV-2 RNA Rapid BERNABE 02/17/23 11:05 WBC RBC Hgb Hct MCV MCH MCHC RDW Coeff of Bianka Plt Count Immature Gran % (Auto) Neut % (Auto) Lymph % (Auto) [place] % (Auto) Eos % (Auto) Baso % (Auto) Neut # (Auto) Lymph # (Auto) [place] # (Auto) Eos # (Auto) Baso # (Auto) Immature Gran # (Auto) Sodium Potassium Chloride Carbon Dioxide Anion Gap BUN Creatinine Estimated GFR (MDRD) BUN/Creatinine Ratio Glucose Calcium Total Bilirubin AST ALT Alkaline Phosphatase Total Protein Albumin Globulin Albumin/Globulin Ratio Urine Color Urine Clarity Urine pH Ur Specific [place] Urine Protein Urine Glucose (UA) Urine Ketones Urine Blood Urine Nitrite Urine Bilirubin Urine Urobilinogen Ur Leukocyte Esterase Salicylate Level mg/dL Urine Opiates Screen Ur Oxycodone Screen Urine Methadone Screen Acetaminophen Ur Barbiturates Screen U Tricyclic Antidepress Ur Phencyclidine Scrn Ur Amphetamine Screen U Methamphetamines Scrn U Benzodiazepines Scrn Urine Cocaine Screen U Cannabinoids Screen SARS CoV-2 RNA Rapid BERNABE Positive H Discharge Instructions Discharge Planning: Discharge Planning > 40 minutes If patient is discharged with left ventricular systolic dysfunction: NA Discharged with a beta pebbles? [] If no, why not? [] Discharged with an dilia/arb? [] If no, why not? [] DX: HYPOGLYCEMIA, ACUTE METABOLIC ENCEPHALOPATHY, HYPOKALEMIA, COVID-19, CONJUNCTIVITIS ADA DIET ACTIVITY TOLERATED FOLLOW-UP WITH PCP NEXT WEEK RX: OFLOXACIN Discharge Medications: Medications at Discharge (Home Meds & RX) acetaminophen 325 mg tablet 325 mg PO Q6H PRN pain/fever 04/28/17 magnesium hydroxide 400 mg/5 mL oral suspension (Milk of Magnesia) 30 ml PO DAILY PRN Constipation 04/28/17 peg 400-propylene glycol 0.4 %-0.3 % eye drops (Systane (propylene glycol)) 1 drp BOTHEYES Q12H PRN dry eye(s) 04/28/17 potassium chloride 10 mEq tablet,extended release (K-Tab) 10 meq PO DAILY 09/09/18 sennosides 8.6 mg-docusate sodium 50 mg tablet (Senokot-S) 1 ea PO Q12HR PRN constipation 09/09/18 amiloride 5 mg tablet 5 mg PO DAILY 09/10/18 duloxetine 20 mg capsule,delayed release (Cymbalta) 40 mg PO .wednesday09/10/18 hydrochlorothiazide 50 mg tablet 50 mg PO DAILY 09/10/18 metoprolol tartrate 50 mg tablet 50 mg PO BID 09/10/18 trazodone 50 mg tablet 25 mg PO BEDTIME 09/10/18 albuterol sulfate 90 mcg/actuation aerosol inhaler (ProAir HFA) 2 inh inhalation Q4H PRN wheezing 02/17/23 budesonide 160 mcg-glycopyr 9 mcg-formot 4.8 mcg/actuation HFA inhaler (Breztri Aerosphere) 2 inh inhalation BID 02/17/23 cholecalciferol (vitamin D3) 25 mcg (1,000 unit) tablet (Vitamin D3) 1,000 unit PO BID 02/17/23 cyanocobalamin (vitamin B-12) 250 mcg tablet 250 mcg PO DAILY 02/17/23 dapagliflozin propanediol 5 mg tablet (Farxiga) 5 mg PO DAILY 02/17/23 duloxetine 60 mg capsule,delayed release 60 mg PO .COMPLEX 02/17/23 famotidine 20 mg tablet (Acid Controller) 20 mg PO DAILY 02/17/23 glipizide 10 mg tablet 10 mg PO BID 02/17/23 nitrofurantoin monohydrate/macrocrystals 100 mg capsule 50 mg PO BEDTIME 02/17/23 olanzapine 5 mg tablet 5 mg PO BID 02/17/23 plecanatide 3 mg tablet (Trulance) 3 mg PO DAILY 02/17/23 polyethylene glycol 3350 17 gram oral powder packet (Miralax) 17 g PO DAILY 02/17/23 pravastatin 20 mg tablet 20 mg PO BEDTIME 02/17/23 Discharge Plan Discharge Discharge Orders: Discharge Patient (ONCE); Ordered 02/18/23 Ordered By: SIMONE NASCIMENTO Activity Restrictions/Additional Instructions: Discharge 02/18/2023, return to [facility]. Diabetic Diet. Activity as tolerated. Follow-up with PCP next week. COVID precautions per facility guidelines. Continue O2 per n/c @ 2 l/m to keep SPO2 above 92%. Continue to check finger stick accu checks as before (tested positive 02/17/2023). Off load and apply protective ointment prn to sacral and buttock areas due to redness. Wash outer eyelids with mild soap or Baby soap and water twice daily and prn Medications: Ofloxacin eye drops - apply to both eyes 1-2 drops every 2-4 hours x 2 days, then 1-2 drops 4 times a day for days 3-7 Continue all other previous medications Instructions: Hypoglycemia in a Person with Diabetes (IP), Conjunctivitis (GEN), COVID-19 (Coronavirus Disease 2019) (GEN) Patient Disposition: TRANSFER SNF Prescriptions: New ofloxacin 0.3 % drops See Rx Instructions .ROUTE .COMPLEX Qty: 10 0RF Rx Instructions: put 1-2 drps into affected eye(s) every 2-4 h x 2 days, then 1-2 drps 4 times/day days 3-7 Continued sennosides-docusate sodium [Senokot-S] 1 EACH tablet 1 ea PO Q12HR PRN (Reason: constipation) potassium chloride [K-Tab] 10 MEQ tablet extended release 10 meq PO DAILY amiloride 5 MG tablet 5 mg PO DAILY hydrochlorothiazide 50 MG tablet 50 mg PO DAILY trazodone 50 MG tablet 25 mg PO BEDTIME duloxetine [Cymbalta] 20 MG capsule,delayed release(DR/EC) 40 mg PO .wednesday Rx Instructions: give 2 capsules PO at bedtimes every wed, Wed for depression metoprolol tartrate 50 MG tablet 50 mg PO BID acetaminophen 325 MG tablet 325 mg PO Q6H PRN (Reason: pain/fever) magnesium hydroxide [Milk of Magnesia] 30 ML suspension 30 ml PO DAILY PRN (Reason: Constipation) Systane (propylene glycol) 15 ML drops 1 drp BOTHEYES Q12H PRN (Reason: dry eye(s)) nitrofurantoin monohyd/m-cryst 100 MG capsule 50 mg PO BEDTIME Farxiga 5 mg tablet 5 mg PO DAILY glipizide 10 mg tablet 10 mg PO BID polyethylene glycol 3350 [Miralax] 17 gram powder in packet 17 g PO DAILY famotidine [Acid Controller] 20 mg tablet 20 mg PO DAILY pravastatin 20 mg tablet 20 mg PO BEDTIME olanzapine 5 mg tablet 5 mg PO BID Trulance 3 mg tablet 3 mg PO DAILY cholecalciferol (vitamin D3) [Vitamin D3] 25 mcg (1,000 unit) tablet 1,000 unit PO BID duloxetine 60 mg capsule,delayed release(DR/EC) 60 mg PO .COMPLEX Rx Instructions: wednesday, wednesday, , wednesday, wednesday at bedtime cyanocobalamin (vitamin B-12) 250 mcg tablet 250 mcg PO DAILY Breztri Aerosphere 160-9-4.8 mcg/actuation HFA aerosol inhaler 2 inh INHALATION BID albuterol sulfate [ProAir HFA] 90 mcg/actuation HFA aerosol inhaler 2 inh inhalation Q4H PRN (Reason: wheezing) Did you review [place] LABORATORY AIDE for ALL controlled substances?: No Discussed opioids are addictive and Narcan is available by prescription or from pharmacy.: No Condition: Stable
[2023-02-18 10:23] VITALS: BP 142/84; PULSE 77; RESP 14; TEMP 97.8
[2023-02-18] MEDS ORDERED: MACROBID PO SCH (21:00)
[2023-02-18] MEDS ORDERED: MACRODANTIN PO SCH ×2 (21:00)
[2023-02-19] MEDS ORDERED: CYMBALTA PO SCH (21:00)
== END 2023-02-18 11:25 ==
LOC: SCU 10:48 → ED 10:48 → SCU 14:53
PROVIDERS: ADMIT Hospitalist; ATTEND Nurse Practitioner Family
DX: H10.33 Unspecified acute conjunctivitis, bilateral; G93.41 Metabolic encephalopathy; E87.6 Hypokalemia; Z51.81 Encounter for therapeutic drug level monitoring; E11.649 Type 2 diabetes mellitus with hypoglycemia without coma; Z79.899 Other long term (current) drug therapy; U07.1 COVID-19; J44.9 Chronic obstructive pulmonary disease, unspecified; Z79.84 Long term (current) use of oral hypoglycemic drugs